=== PATIENT | female | born 1985 | race African-American/Black ===

== ENCOUNTER → 2019-03-31 | Outpatient (CLI) | payer MEDICAID ==
[2015-06-22 16:15] VITALS: BP 118/68
[~2019-03-31] MED LIST: ACET-704 PO; IBUP-1060 PO
--- NOTE | 2019-03-31 16:53 | KCIC ---
Examination: PREG MORE THAN OR EQ TO 14 WKS History: Unknown dates. Estimation of weight. Comparison/Correlation: None FINDINGS: Single living intrauterine gestation is present with cephalic lie. Posterior the located placenta is noted. Heart rate is 140 cm present. Maternal cervical length is 5.6 cm. anatomy identified includes: Bladder, spine, bilateral lateral ventricles, stomach, heart, aorta, three-vessel cord insertion, bilateral kidneys, diaphragm, cerebellum, cisterna magna, bilateral upper extremities, and bilateral lower extremities. gender: Female measurements include: Biparietal diameter: 6.46 cm corresponding to 26 weeks 1 day. Femur length of 5.08 cm corresponding to 27 weeks 2 days. Head circumference of 24.1 cm corresponding to 26 weeks 1 day. Abdominal circumference of 27.8 cm corresponding to 27 weeks 2 days. Age by 4 parameters corresponds to 26 weeks 3 days. EDC by average age is 07/04/2019. Cephalic index of 85.5. H/A ratio is 1.11. FL/BPD is 78.6. FL/ AC is 23.3. Estimated weight is 956 g +/- 141 g. Amniotic fluid index is 12.2. IMPRESSION: Single living intrauterine gestation with average ultrasound age of 26 weeks 3 days. Electronically signed by: Farhat Rice MD (03/31/2019 4:50 PM) [facility]
== END | disposition home or self-care (01) ==
LOC: KCIC US 11:51
PROVIDERS: ATTEND Obstetrics & Gynecology
DX: Z34.92 Encounter for supervision of normal pregnancy, unspecified, second trimester (principal); Z3A.26 26 weeks gestation of pregnancy
CPT/HCPCS: 76805

== ENCOUNTER 2019-06-09 10:03 | Observation (INO) | payer MEDICAID ==
[2015-06-22 16:15] VITALS: BP 118/68
--- NOTE | 2019-06-09 11:54 | RAD ---
Exam is an: Ultrasound biophysical profile HISTORY: History of gestational diabetes COMPARISON: 03/31/2019 FINDINGS: breathing movements 2 / 2 motion 2 / 2 tone 2/2 Amniotic fluid volume 2 / 2. Placenta is posterior and to the left. presentation is cephalic. Amniotic fluid index is 10.7 cm. Clinical age 36 weeks and 3 days with estimated date of delivery 07/04/2019. Ultrasound age is 36 weeks and 0 days with date of delivery by ultrasound 07/07/2019. Cephalic index 81.4. heart rate 152 bpm. Head circumference to abdominal circumference ratio 0.96. Femur length to biparietal diameter ratio 82. Femur length to head circumference 23. Femur length abdominal circumference 22. Biparietal diameter measures 8.7 cm corresponding 35 weeks and 3 days. Head circumference measures 31.2 cm corresponding 35 weeks and 0 days. Abdominal circumference measures 32.5 cm corresponding to 36 weeks and 3 days Femur length measures 7.1 cm corresponding 36 weeks and 6 days. IMPRESSION: 1. Single living intrauterine . 2. Normal biophysical profile score. Electronically signed by: Jaspal Babin MD (06/09/2019 11:50 AM) [id number]
== END 2019-06-09 11:32 | disposition home or self-care (01) ==
LOC: 3 SO LND 10:03
PROVIDERS: ADMIT Obstetrics & Gynecology; ATTEND Obstetrics & Gynecology
DX: O24.419 Gestational diabetes mellitus in pregnancy, unspecified control (principal); Z3A.36 36 weeks gestation of pregnancy; Z98.891 History of uterine scar from previous surgery
CPT/HCPCS: 76819; G0378; G0379; 59025

== ENCOUNTER 2019-06-16 09:44 | Observation (INO) | payer MEDICAID ==
[2015-06-22 16:15] VITALS: BP 118/68
--- NOTE | 2019-06-16 11:28 | RAD ---
PREG MORE THAN OR EQ TO 14 WKS History: Gestational diabetes Comparison: June 09, 2019; March 31, 2019 Findings: Multiple sonographic images from a biophysical profile/ ultrasound are submitted. There is a single viable intrauterine fetus. There was 8 of 8 scoring for the biophysical profile which assessed for breathing movements, motion, tone, amniotic fluid volume. Estimated ZAKIYA was 9.1 cm. There is cephalic presentation. Exam lasted about 18 minutes. heart rate 158 bpm. There is posterior and left placenta. Cervix is not well-visualized on this exam. Accurate evaluation of the head is limited due to head position in the pelvis. Biometry data are as follows: Biparietal diameter 8.75 cm corresponds 35 weeks 2 days Head circumference 31.74 cm corresponds with 35 weeks 5 days Abdominal circumference 33.17 cm corresponds with 37 weeks 1 day Femur length 7.37 cm corresponds with 37 weeks 5 days Estimated weight 3055 g +/- 452 g Estimated weight percentile 43% Adjusted ultrasound age 36 weeks 3 days with estimated delivery date of 07/11/2019 LMP age 37 weeks 3 days with estimated delivery date 07/04/2019 HC/AC ratio within normal limits 0.96. Impression: 1. There is 8 of 8 scoring for the biophysical profile. There are growth parameters as stated. There is cephalic presentation of the single intrauterine fetus. Cervix is not well-visualized on this exam. Electronically signed by: Jenaro Randolph MD (06/16/2019 11:25 AM) [facility] [id number]
== END 2019-06-16 12:18 | disposition home or self-care (01) ==
LOC: 3 SO LND 09:44
PROVIDERS: ADMIT Obstetrics & Gynecology; ATTEND Obstetrics & Gynecology
DX: O24.419 Gestational diabetes mellitus in pregnancy, unspecified control (principal); Z3A.37 37 weeks gestation of pregnancy
CPT/HCPCS: 76805; G0378; G0379; 59025

== ENCOUNTER 2019-06-23 10:27 | Observation (INO) | payer MEDICAID ==
[2015-06-22 16:15] VITALS: BP 118/68
[2019-06-23] MEDS ORDERED: IV RINGERS,LACTATED 1000ML 1,000 ML IV SCH (10:29)
== END 2019-06-23 11:36 | disposition home or self-care (01) ==
LOC: 3 SO LND 10:27
PROVIDERS: ADMIT Obstetrics & Gynecology; ATTEND Obstetrics & Gynecology
DX: O24.419 Gestational diabetes mellitus in pregnancy, unspecified control (principal); Z3A.38 38 weeks gestation of pregnancy
CPT/HCPCS: G0378; G0379; 59025

== ENCOUNTER 2019-06-27 05:38 | Inpatient (IN) | payer MEDICAID ==
[~2019-06-27] VITALS: Ht 160 cm; Wt 102.5 kg
[2019-06-27] MEDS ORDERED: TERBUTALINE 1 MG/ML VIAL. SQ PRN (05:45)
[2019-06-27] MEDS ORDERED: CITRIC ACID/SODIUM CITRATE 30 ML SOLUTION. PO PRN (05:45)
[2019-06-27] MEDS ORDERED: 0.9 % SODIUM CHLORIDE 10 ML DISP.SYRIN. IV PRN ×2 (05:45→08:00)
[2019-06-27] MEDS ORDERED: miSOPROStol 200 MCG TABLET PR PRN (05:45)
[2019-06-27] MEDS ORDERED: ACETAMINOPHEN 500 MG TABLET PO PRN (05:45)
[2019-06-27] MEDS ORDERED: METHYLERGONOVINE MALEATE 0.2 MG/ML VIAL. IM PRN (05:45)
[2019-06-27] MEDS ORDERED: ONDANSETRON PF 4 MG/2 ML VIAL. IV PRN (05:45)
[2019-06-27] MEDS ORDERED: fentaNYL PF VIAL 100 MCG/2 ML VIAL IV PRN ×2 (05:45)
[2019-06-27] MEDS ORDERED: BUTORPHANOL 2 MG/ML VIAL. IV PRN (05:45)
[2019-06-27] MEDS ORDERED: OXYTOCIN 30 UNIT/500 ML PREMIX 500 ML IV PRN ×3 (05:45→08:00)
[2019-06-27] MEDS ORDERED: LIDOCAINE 1% PF 30 ML VIAL. INJ PRN (05:45)
[2019-06-27] MEDS ORDERED: IBUPROFEN 400 MG TABLET. PO PRN (05:45)
[2019-06-27] MEDS ORDERED: PENICILLIN G K 5,000,000 UNIT in IV DEXTROSE 5% 100ML 100 ML IV ONE (06:00)
[2019-06-27] MEDS: IV RINGERS,LACTATED 1000ML 1,000 ML IV SCH ×3 (06:02→21:39)
[2019-06-27 06:06] LABS: BASO % 0 % (0-3); EOS % 0 % (0-3); HEMATOCRIT 35.1 % (36.0-47.0); HEMOGLOBIN 11.7 g/dL (12.0-15.5); LYMPH # 1.2 x10^3/uL (1.0-4.8); LYMPH % 8 % (24-48); MEAN CORPUSCULAR HEMOGLOBIN 27 pg (25-35); MEAN CORPUSCULAR HGB CONC 33 g/dL (31-37); MEAN CORPUSCULAR VOLUME 81 fL (79-100); MONO # 1.2 x10^3/uL (0.0-1.1); MONO % 9 % (0-9); NEUT # 11.5 x10^3/uL (1.8-7.7); NEUT % 83 % (31-73); PLATELET COUNT 201 x10^3/uL (140-400); RED BLOOD COUNT 4.31 x10^6/uL (3.50-5.40); RED CELL DISTRIBUTION WIDTH 15.2 % (11.5-14.5); WHITE BLOOD COUNT 13.9 x10^3/uL (4.0-11.0)
[2019-06-27 06:09] VITALS: BP 160/74
[2019-06-27 06:17] LABS: BILIRUBIN,URINE NEGATIVE (NEG); CLARITY,URINE CLOUDY; COLOR,URINE YELLOW; NITRITE,URINE NEGATIVE (NEG); PH,URINE 6.5; PROTEIN,URINE NEGATIVE (NEG-TRACE)
[2019-06-27 06:55] LABS: WBC,URINE TNTC /HPF (0-4)
[2019-06-27 06:56] LABS: BACTERIA,URINE MANY /HPF (0-FEW)
--- NOTE | 2019-06-27 06:56 | PDOC1 ---
OB - History Hx of Present Care: Limited Care Ultrasounds: Normal mid trimester US Obstetrical Complications: Gestational Diabetes Medical Complications: None Past Family/Social History * Past Medical, Surgical, Family and Obstetric Histories reviewed from chart. Rubella: Immune RPR/VDRL: Negative GBS Status: Positive HBsAG: Negative OB - Chief Complaint & HPI Date of Admission: Date of Admission: Jun 27, 2019 at 05:38 Chief Complaint/History : 11 Para: 7 EGA: 39 Reason for admission: active labor Admission Nurse Assessment Rev: Yes OB - Admission Exam Physical Exam Vitals: VS - Last 72 Hours, by Label Date Time Temp Pulse Resp B/P (MAP) Pulse Ox O2 Delivery O2 Flow Rate FiO2 06/27/19 06:09 98.6 116 18 160/74 (102) Room Air 98.6 HEENT: Normal Heart: Regular Rate Lungs: Clear, Equal Abdomen: Gravid, Non tender, Soft Extremities: Edema Reflexes: Normal Cervical Dilatation: 7cm Effacement: 75% Station: -2 Membranes: Intact Heart Rate: Normal Accelerations: Accelerations Present Decelerations: No decelerations Mcfp Variability: Moderate Contractions on Admission: < 5 Minutes Apart Intensity: Moderate Text A: 39 wks IUP Previous c/s Previous x 4 GBS positive GDM A1 P: Admit active labor. Plan for . CAROL MONTEZ Jr, MD Jun 27, 2019 06:56
[2019-06-27] MEDS ORDERED: OXYTOCIN PREMIX 30 UNIT/500 ML NS BAG. IV ONE (07:00)
--- NOTE | 2019-06-27 07:53 | PDOC ---
VAGINAL DELIVERY DATE DATE: 06/27/19 TIME: 07:52 : Other (11) Para: Other (8) EGA: 39 VAGINAL DELIVERY: VTX VACCUM ASSISTED: No PLACENTA: Spontaneous 8/9 SEX: Female WEIGHT Weight [pending ] Nuchal Cord: No Amniotic Fluid: Clear PAIN: Natural EPISIOTOMY: No EXTENSION: No EBL 300 ml COMPLICATIONS none CONDITION pt. stable Signs of Intrauterine Infectio: None Shoulder Dystocia: No CAROL MONTEZ Jr, MD Jun 27, 2019 07:53
[2019-06-27] MEDS ORDERED: diphenhydrAMINE HCL 25 MG CAPSULE PO PRN (08:00)
[2019-06-27] MEDS ORDERED: ZOLPIDEM 5 MG TABLET. PO PRN (08:00)
[2019-06-27] MEDS ORDERED: MAG HYDROX/ALUMINUM HYD/SIMETH 30 ML ORAL.SUSP PO PRN (08:00)
[2019-06-27] MEDS ORDERED: ACETAMINOPHEN 325 MG TABLET. PO PRN (08:00)
[2019-06-27] MEDS ORDERED: MAGNESIUM HYDROXIDE 2,400 MG/30 ML ORAL.SUSP. PO PRN (08:00)
[2019-06-27] MEDS ORDERED: PHENYLEPH/MINERAL OIL/PETROLAT RECTAL OINTMENT TUBE. RC PRN (08:00)
[2019-06-27] MEDS ORDERED: HYDROCORTISONE 1% TOPICAL OINTMENT 30GM TUBE. TP PRN (08:00)
[2019-06-27] MEDS ORDERED: oxyCODONE/APAP 5/325 1 TAB TABLET PO PRN (08:00)
[2019-06-27] MEDS ORDERED: SIMETHICONE 80 MG TAB.CHEW PO PRN (08:00)
[2019-06-27] MEDS ORDERED: MMR per PROTOCOL. MC PRN (08:00)
[2019-06-27] MEDS ORDERED: BENZOCAINE 20% TOPICAL AEROSOL SPRAY 57GM CAN. TP PRN (08:00)
[2019-06-27] MEDS ORDERED: PENICILLIN G K 2,500,000 UNIT in IV DEXTROSE 5% 50 ML IV SCH (10:00)
[2019-06-27 20:05] VITALS: BP 109/62
[2019-06-27] MEDS: DOCUSATE SODIUM 100 MG CAPSULE. PO PRN (21:10)
[2019-06-27] MEDS: IBUPROFEN 400 MG TABLET. PO PRN (21:11)
[2019-06-28] VITALS: BP 110/71
[2019-06-28 04:30] VITALS: BP 92/55
[2019-06-28 04:45] LABS: BASO % 0 % (0-3); EOS # 0.1 x10^3/uL (0.0-0.7); EOS % 0 % (0-3); HEMATOCRIT 32.9 % (36.0-47.0); HEMOGLOBIN 10.9 g/dL (12.0-15.5); LYMPH # 2.8 x10^3/uL (1.0-4.8); LYMPH % 21 % (24-48); MEAN CORPUSCULAR HEMOGLOBIN 27 pg (25-35); MEAN CORPUSCULAR HGB CONC 33 g/dL (31-37); MEAN CORPUSCULAR VOLUME 82 fL (79-100); MONO # 1.3 x10^3/uL (0.0-1.1); MONO % 10 % (0-9); NEUT # 8.8 x10^3/uL (1.8-7.7); NEUT % 68 % (31-73); PLATELET COUNT 209 x10^3/uL (140-400); RED BLOOD COUNT 4.03 x10^6/uL (3.50-5.40); RED CELL DISTRIBUTION WIDTH 15.2 % (11.5-14.5)
[2019-06-28] MEDS ORDERED: FERROUS SULFATE 325 MG TABLET. PO SCH (08:00)
[2019-06-28] MEDS ORDERED: FLU VAX QS 2019-20 (36MOS+)/PF 0.5 ML SYRINGE. VAX IM ONE (09:30)
[2019-06-28] MEDS ORDERED: DIPHTH,PERTUSS(ACELL),TET TOX 0.5 ML DISP.SYRIN. VAX IM ONE (09:45)
[2019-06-28 11:20] VITALS: BP 99/72
[2019-06-28 16:45] VITALS: BP 102/68
--- NOTE | 2019-06-28 18:28 | PDOC ---
OB Progress Note Date of Service 06/28/19 Time of Evaluation 1825 Notes Pt. feeling well. No complaints. Lab Laboratory Tests Test 06/27/19 05:50 06/27/19 06:00 06/28/19 04:25 Urine Collection Type Unknown Urine Color Yellow Urine Clarity Cloudy Urine pH 6.5 Urine Specific [place] 1.010 Urine Protein Negative mg/dL (NEG-TRACE) Urine Glucose (UA) Negative mg/dL (NEG) Urine Ketones (Stick) >=80 mg/dL (NEG) Urine Blood Large (NEG) Urine Nitrite Negative (NEG) Urine Bilirubin Negative (NEG) Urine Urobilinogen Dipstick 1.0 mg/dL (0.2 mg/dL) Urine Leukocyte Esterase Large (NEG) Urine RBC 6-10 /HPF (0-2) Urine WBC Tntc /HPF (0-4) Urine Bacteria Many /HPF (0-FEW) White Blood Count 13.9 x10^3/uL (4.0-11.0) 13.0 x10^3/uL (4.0-11.0) Red Blood Count 4.31 x10^6/uL (3.50-5.40) 4.03 x10^6/uL (3.50-5.40) Hemoglobin 11.7 g/dL (12.0-15.5) 10.9 g/dL (12.0-15.5) Hematocrit 35.1 % (36.0-47.0) 32.9 % (36.0-47.0) Mean Corpuscular Volume 81 fL (79-100) 82 fL (79-100) Mean Corpuscular Hemoglobin 27 pg (25-35) 27 pg (25-35) Mean Corpuscular Hemoglobin Concent 33 g/dL (31-37) 33 g/dL (31-37) Red Cell Distribution Width 15.2 % (11.5-14.5) 15.2 % (11.5-14.5) Platelet Count 201 x10^3/uL (140-400) 209 x10^3/uL (140-400) Neutrophils (%) (Auto) 83 % (31-73) 68 % (31-73) Lymphocytes (%) (Auto) 8 % (24-48) 21 % (24-48) Monocytes (%) (Auto) 9 % (0-9) 10 % (0-9) Eosinophils (%) (Auto) 0 % (0-3) 0 % (0-3) Basophils (%) (Auto) 0 % (0-3) 0 % (0-3) Neutrophils # (Auto) 11.5 x10^3/uL (1.8-7.7) 8.8 x10^3/uL (1.8-7.7) Lymphocytes # (Auto) 1.2 x10^3/uL (1.0-4.8) 2.8 x10^3/uL (1.0-4.8) Monocytes # (Auto) 1.2 x10^3/uL (0.0-1.1) 1.3 x10^3/uL (0.0-1.1) Eosinophils # (Auto) 0.0 x10^3/uL (0.0-0.7) 0.1 x10^3/uL (0.0-0.7) Basophils # (Auto) 0.0 x10^3/uL (0.0-0.2) 0.0 x10^3/uL (0.0-0.2) Treponema pallidum Antibody Nonreactive (Nonreactive) Laboratory Tests Test 06/28/19 04:25 White Blood Count 13.0 x10^3/uL (4.0-11.0) Red Blood Count 4.03 x10^6/uL (3.50-5.40) Hemoglobin 10.9 g/dL (12.0-15.5) Hematocrit 32.9 % (36.0-47.0) Mean Corpuscular Volume 82 fL (79-100) Mean Corpuscular Hemoglobin 27 pg (25-35) Mean Corpuscular Hemoglobin Concent 33 g/dL (31-37) Red Cell Distribution Width 15.2 % (11.5-14.5) Platelet Count 209 x10^3/uL (140-400) Neutrophils (%) (Auto) 68 % (31-73) Lymphocytes (%) (Auto) 21 % (24-48) Monocytes (%) (Auto) 10 % (0-9) Eosinophils (%) (Auto) 0 % (0-3) Basophils (%) (Auto) 0 % (0-3) Neutrophils # (Auto) 8.8 x10^3/uL (1.8-7.7) Lymphocytes # (Auto) 2.8 x10^3/uL (1.0-4.8) Monocytes # (Auto) 1.3 x10^3/uL (0.0-1.1) Eosinophils # (Auto) 0.1 x10^3/uL (0.0-0.7) Basophils # (Auto) 0.0 x10^3/uL (0.0-0.2) Medications Current Medications Sodium Chloride (Normal Saline Flush) 3 ml QSHIFT PRN IV AFTER MEDS AND BLOOD DRAWS Last administered on 06/28/19at 00:22; Start 06/27/19 at 05:45; Stop 06/28/19 at 13:10; Status DC Ringer's Solution 1,000 ml @ 125 mls/hr Q8H IV Last administered on 06/27/19at 06:02; Start 06/27/19 at 05:39 Butorphanol Tartrate (Stadol) 2 mg PRN Q1HR PRN IV Severe labor pain; Start 06/27/19 at 05:45; Stop 06/27/19 at 18:01; Status DC Fentanyl Citrate (Fentanyl 2ml Vial) 50 mcg PRN Q30MIN PRN IV Mild to moderate pain; Start 06/27/19 at 05:45 Fentanyl Citrate (Fentanyl 2ml Vial) 100 mcg PRN Q30MIN PRN IV Severe pain; Start 06/27/19 at 05:45 Acetaminophen (Tylenol) 1,000 mg PRN Q6HRS PRN PO MILD PAIN / TEMP; Start 06/27/19 at 05:45; Stop 06/28/19 at 13:10; Status DC Ondansetron HCl (Zofran) 4 mg PRN Q4HRS PRN IV NAUSEA/VOMITING 1ST CHOICE; Start 06/27/19 at 05:45 Citric Acid/ Sodium Citrate (Bicitra) 30 ml 1X PRN PRN PO DYSPEPSIA; Start 06/27/19 at 05:45; Stop 06/28/19 at 05:44; Status DC Terbutaline Sulfate (Brethine) 0.25 mg 1X PRN PRN SQ SEE COMMENTS; Start 06/27/19 at 05:45; Stop 06/28/19 at 05:44; Status DC Lidocaine HCl (Xylocaine 1% Pf 30ml Vial) 30 ml 1X PRN PRN INJ SEE COMMENTS; Start 06/27/19 at 05:45; Stop 06/29/19 at 05:44 Oxytocin/Sodium Chloride 500 ml @ 0 mls/hr CONT PRN IV SEE I/O RECORD; Start 06/27/19 at 05:45 Oxytocin/Sodium Chloride 500 ml @ 0 mls/hr CONT PRN PRN IV Post delivery ble eding; Start 06/27/19 at 05:45 Ibuprofen (Motrin) 800 mg PRN Q6HRS PRN PO MODERATE PAIN 4-6 Last administered on 06/27/19at 09:16; Start 06/27/19 at 05:45; Stop 06/27/19 at 18:01; Status DC Penicillin G Potassium [id number] unit/Dextrose 100 ml @ 100 mls/hr 1X ONCE IV Last administered on 06/27/19at 06:02; Start 06/27/19 at 06:00; Stop 06/27/19 at 06:59; Status DC Penicillin G Potassium [id number] unit/Dextrose 50 ml @ 100 mls/hr Q4H IV ; Start 06/27/19 at 10:00; Stop 06/27/19 at 18:01; Status DC Methylergonovine Maleate (Methergine) 0.2 mg 1X PRN PRN IM PER PROTOCOL; Start 06/27/19 at 05:45 Misoprostol (Cytotec 200mcg Tab) 800 mcg 1X PRN PRN HI PER PROTOCOL; Start 06/27/19 at 05:45 Sodium Chloride (Normal Saline Flush) 10 ml QSHIFT PRN IV AFTER MEDS AND BLOOD DRAWS; Start 06/27/19 at 08:00 Oxytocin/Sodium Chloride 500 ml @ 62.5 mls/hr CONT PRN IV SEE I/O RECORD; St art 06/27/19 at 08:00; Stop 06/27/19 at 15:59; Status DC Acetaminophen (Tylenol) 650 mg PRN Q6HRS PRN PO MILD PAIN / TEMP; Start 06/27/19 at 08:00 Ibuprofen (Motrin) 800 mg PRN Q8HRS PRN PO INFLAMMATION/PAIN PREVENTION Last administered on 06/27/19at 21:11; Start 06/27/19 at 08:00 Docusate Sodium (Colace) 100 mg PRN BID PRN PO HARD STOOLS Last administered on 06/27/19at 21:10; Start 06/27/19 at 08:00 Magnesium Hydroxide (Milk Of Magnesia) 2,400 mg PRN DAILY PRN PO CONSTIPATION; Start 06/27/19 at 08:00 Al Hydroxide/Mg Hydroxide (Mylanta Plus Xs) 30 ml PRN Q4HRS PRN PO HEARTBURN / GAS; Start 06/27/19 at 08:00 Simethicone (Gas-X) 80 mg PRN AFTMEALHC PRN PO GAS / BLOATING; Start 06/27/19 at 08:00 Diphenhydramine HCl (Benadryl) 25 mg PRN Q6HRS PRN PO ITCHING; Start 06/27/19 at 08:00 Benzocaine (Americaine) 1 spray PRN QID PRN TP TOPICAL PAIN; Start 06/27/19 at 08:00 Phenyleph/Shark Oil/Min Oil/Petrol (Preparation H) 1 renu PRN QID PRN RC RECTAL PAIN; Start 06/27/19 at 08:00 Hydrocortisone (Cortaid) 1 renu PRN QID PRN TP PERINEAL PAIN; Start 06/27/19 at 08:00 Ferrous Sulfate (Feosol) 325 mg BIDWMEALS PO ; Start 06/28/19 at 08:00 Zolpidem Tartrate (Ambien) 5 mg PRN QHS PRN PO INSOMNIA, MAY REPEAT X1; Start 06/27/19 at 08:00 Info (Do NOT chart on this placeholder) 1 ea 1X PRN PRN MC SEE COMMENTS; Start 06/27/19 at 08:00 Info (Do NOT chart on this placeholder) 1 ea 1X PRN PRN MC SEE COMMENTS; Start 06/27/19 at 08:00 Oxycodone/ Acetaminophen (Percocet 5/325) 2 tab PRN Q4HRS PRN PO MODERATE PAIN, SEVERE PAIN; Start 06/27/19 at 08:00 Oxytocin/Sodium Chloride (Oxytocin Premix Infusion) 60 unit STK-MED ONCE IV ; Start 06/27/19 at 07:00; Stop 06/27/19 at 13:12; Status DC Influenza Virus Vaccine Quadrival (Afluria Quad 2019-20 (3yr Up) Syringe) 0.5 ml ONCE ONCE VAX IM ; Start 06/28/19 at 09:30; Stop 06/28/19 at 09:32; Status DC Diphtheria/ Tetanus/Acell Pertussis (Boostrix) 0.5 ml ONCE ONCE VAX IM ; Start 06/28/19 at 09:45; Stop 06/28/19 at 09:46; Status DC Active Scripts Active Tylenol With Codeine #3 Tablet (Acetaminophen/Codeine Phosphate) 1 Each Tablet 1 Each PO Q4H PRN Ibuprofen 800 Mg Tablet 800 Mg PO Q6H PRN Exam Abd: soft, non tender, fundus firm Assessment PPD#1 s/p Plan of Care: Continue current Tx, Mgmt CAROL MONTEZ Jr, MD Jun 28, 2019 18:28
[2019-06-28 20:05] VITALS: BP 132/78
[2019-06-29] MEDS: IBUPROFEN 400 MG TABLET. PO PRN ×2 (01:37→10:55)
[2019-06-29 04:41] VITALS: BP 114/73
[2019-06-29] MEDS: DOCUSATE SODIUM 100 MG CAPSULE. PO PRN (10:55)
[2019-06-29 11:01] VITALS: BP 112/75
--- NOTE | 2019-06-29 12:48 | PDOC3 ---
OB DISCHARGE SUMMARY DATE OF ADMISSION: 06/27/19 DATE OF DISCHARGE: 06/29/19 REASON FOR ADMISSION: Onset of labor, TOLAC INTRAPARTUM PROCEDURES: Others () DISCHARGE DIAGNOSIS: Term Delivered DISCHARGE INFORMATION: Activity (ad guy), Diet (regular), Instructions (pelvic rest x 6 wks) HOSPITAL COURSE Term gestation delivered vaginally without complications. CAROL MONTEZ Jr, MD Jun 29, 2019 12:48
[2019-06-29] MEDS ORDERED: IBUP-1060 PO (12:50)
--- NOTE | 2019-06-29 12:50 | DISCH ---
DISCHARGE INSTRUCTIONS Condition on Discharge Condition on Discharge: Stable Activity After Discharge Activity Instructions for Disc: Avoid exertion Bathing Instructions: No Tub Bath until see Lifting Instructions after Dis: No heavy lifting, No pulling or pushing, Do not lift >10 pounds Exercise Instruction after Dis: Progress as tolerated Driving Instructions after Dis: Do not drive today Weight Bearing Status after Di: Full weight bearing Sexual Activity Restrictions: Pelvic Rest for 6 weeks Diet after Discharge Diet after Discharge: Regular Diet Texture: Regular Swallowing Supervision: None needed Wound Incision Care Wound/Incision Care: No wound care needed Checks after Discharge Checks after discharge: Check your Temp as needed Contacting the DRDivina after DC Call your doctor for: If your condition worsens Follow-Up Follow Up With: Dr. Frank in 6 weeks Treatment/Equipment after DC Adaptive Equipment Issued: None CAROL FRANK Jr, MD Jun 29, 2019 12:50
--- NOTE | 2019-06-29 14:08 | NUR ---
Discharge Note: SEMAJ MURRY [address] Discharge instructions and discharge home medications reviewed with Patient and a copy given. All questions have been answered and understanding verbalized. Patient discharged to home with self-care via ambulation to private vehicle. Pt. daughter and spouse at bedside at time of discharge.
== END 2019-06-29 13:15 | disposition home or self-care (01) | DRG 807 ==
LOC: 3 SO LND 05:38 → OBSVTOIN 05:43 → 3 NORTH 10:20
PROVIDERS: ADMIT Obstetrics & Gynecology; ATTEND Obstetrics & Gynecology
PROC: 10E0XZZ Delivery of Products of Conception, External Approach (ICD-10-PCS; principal; 2019-06-27)
DX: O24.420 Gestational diabetes mellitus in childbirth, diet controlled (principal); Z37.0 Single live birth; O99.824 Streptococcus B carrier state complicating childbirth; O34.219 Maternal care for unspecified type scar from previous cesarean delivery; Z3A.39 39 weeks gestation of pregnancy
CPT/HCPCS: 36415; 81001; 85025; 86592; 86850; 86900; 86901; 86920; 87086; 90471; 90686; 90715; G0379; J2540; J2590; J7120; G0378

== ENCOUNTER 2020-08-14 13:06 | Emergency (ER) | payer MEDICAID ==
[~2020-08-14] VITALS: Ht 165.1 cm; Wt 100.0 kg
[2020-08-14 14:37] LABS: BACTERIA,URINE 0 /HPF (0-FEW); BILIRUBIN,URINE NEGATIVE (NEG); CLARITY,URINE CLEAR; COLOR,URINE YELLOW; NITRITE,URINE NEGATIVE (NEG); PROTEIN,URINE NEGATIVE (NEG-TRACE); RBC,URINE 0 /HPF (0-2); UROBILINOGEN,URINE 0.2 mg/dL (0.2 mg/dL); WBC,URINE 0 /HPF (0-4)
--- NOTE | 2020-08-14 15:40 | RAD ---
EXAM: Ultrasound OB Greater than 14 weeks INDICATION: Reason: vag bleeding in / Spl. Instructions: / History: TECHNIQUE: Real-time obstetrical ultrasound was performed with permanent freeze-frame documentation. COMPARISON: None. FINDINGS: POSITION: Cephalic HEART RATE: 157 bpm ZAKIYA: Subjectively normal. PLACENTA: Posterior previa CERVICAL LENGTH: 5.8 cm MATERNAL UTERUS: Unremarkable. MATERNAL ADNEXA: Unremarkable. AGE/DATES: Gestational Age by LMP: 13 weeks 6 days Gestation Age by US: 14 weeks 2 days EDC by LMP: February 13, 2021 EDC by US: February 10, 2021 WEIGHT: Not estimated PERCENTILE WEIGHT: Not estimated BIOMETRIC PARAMETERS: BPD: 2.5 cm corresponding with 14 weeks 2 days HC: 9.1 cm corresponding with 14 weeks 1 day AC: 8.3 cm corresponding with 14 weeks 4 days FL: 1.4 cm corresponding with 14 weeks 1 day IMPRESSION: Single viable intrauterine fetus in cephalic position with posterior placenta previa. Estimated gesta tional age of 14 weeks 2 days and EDC of February 10, 2021. Electronically signed by: Davion Koenig MD (08/14/2020 3:37 PM) [id number]
[2020-08-14 15:43] LABS: BASO % 0 % (0-3); EOS % 1 % (0-3); HEMATOCRIT 40.9 % (36.0-47.0); HEMOGLOBIN 14.1 g/dL (12.0-15.5); LYMPH # 2.1 x10^3/uL (1.0-4.8); LYMPH % 28 % (24-48); MEAN CORPUSCULAR HEMOGLOBIN 30 pg (25-35); MEAN CORPUSCULAR HGB CONC 35 g/dL (31-37); MEAN CORPUSCULAR VOLUME 86 fL (79-100); MONO # 0.5 x10^3/uL (0.0-1.1); MONO % 7 % (0-9); NEUT # 4.9 x10^3/uL (1.8-7.7); NEUT % 64 % (31-73); PLATELET COUNT 300 x10^3/uL (140-400); RED BLOOD COUNT 4.74 x10^6/uL (3.50-5.40); RED CELL DISTRIBUTION WIDTH 13.6 % (11.5-14.5); WHITE BLOOD COUNT 7.7 x10^3/uL (4.0-11.0)
[2020-08-14 15:50] LABS: CALCIUM 8.8 mg/dL (8.5-10.1); CREATININE 0.5 mg/dL (0.6-1.0); GFR 168.9; POTASSIUM 3.6 mmol/L (3.5-5.1)
[2020-08-14 15:56] LABS: ALBUMIN 3.2 g/dL (3.4-5.0); ALBUMIN/GLOBULIN RATIO 0.8 (1.0-1.7); TOTAL BILIRUBIN 0.3 mg/dL (0.2-1.0); TOTAL PROTEIN 7.2 g/dL (6.4-8.2)
[2020-08-14 16:26] VITALS: BP 111/69
--- NOTE | 2020-08-14 16:27 | PHYS DOC ---
Past Medical History Past Medical History: No Pertinent History Past Surgical History: Smoking Status: Never Smoker Alcohol Use: None General Adult EDM: Chief Complaint: VAGINAL BLEEDING HPI: HPI: Patient is a 35 year old female 12 para 8 presents into the ED today complaining of vaginal bleeding that began on August 05, 2020. Patient states the bleeding is very light and intermittent. She states she has not had any bleeding today. Denies any abdominal pain, nausea vomiting. She states she follows up with an CLAIMS CONSULTANT Review of Systems: Review of Systems: Constitutional: Denies fever or chills. [] Eyes: Denies change in visual acuity. [] HENT: Denies nasal congestion or sore throat. [] Respiratory: Denies cough or shortness of breath. [] Cardiovascular: Denies chest pain or edema. [] GI: Reports vaginal bleeding. Denies abdominal pain, nausea, vomiting, bloody stools or diarrhea. [] : Denies dysuria. [] Musculoskeletal: Denies back pain or joint pain. [] Integument: Denies rash. [] Neurologic: Denies headache, focal weakness or sensory changes. [] Psychiatric: Denies depression or anxiety. [] Heart Score: Risk Factors: Risk Factors: DM, Current or recent (<one month) smoker, HTN, HLP, family history of CAD, obesity. Risk Scores: Score 0 - 3: 2.5% MACE over next 6 weeks - Discharge Home Score 4 - 6: 20.3% MACE over next 6 weeks - Admit for Clinical Observation Score 7 - 10: 72.7% MACE over next 6 weeks - Early Invasive Strategies Allergies: Allergies: Allergies Coded Allergies Type Severity Reaction Last Updated Verified No Known Drug Allergies 06/20/15 No Physical Exam: PE: Constitutional: Well developed, well nourished, no acute distress, non-toxic appearance. [] HENT: Normocephalic, atraumatic, bilateral external ears normal, oropharynx moist, no oral exudates, nose normal. [] Eyes: PERRLA, EOMI, conjunctiva normal, no discharge. [] Neck: Normal range of motion, no tenderness, supple, no stridor. [] Cardiovascular:Heart rate regular rhythm, no murmur [] Lungs & Thorax: Bilateral breath sounds clear to auscultation [] Abdomen: Bowel sounds normal, soft, no tenderness, no masses, no pulsatile masses. [] Pelvic exam External pelvic appears normal, cervix is visualized, closed, no CMT, no adnexal tenderness, no bleeding noted Skin: Warm, dry, no erythema, no rash. [] Back: No tenderness, no CVA tenderness. [] Extremities: No tenderness, no cyanosis, no clubbing, ROM intact, no edema. [] Neurologic: Alert and oriented X 3, normal motor function, normal sensory f unction, no focal deficits noted. [] Psychologic: Affect normal, judgement normal, mood normal. [] Current Patient Data: Labs: Laboratory Tests Test 08/14/20 13:45 08/14/20 13:52 08/14/20 15:30 Urine Collection Type Unknown Urine Color Yellow Urine Clarity Clear Urine pH 7.0 (<5.0-8.0) Urine Specific [place] 1.015 (1.000-1.030) Urine Protein Negative mg/dL (NEG-TRACE) Urine Glucose (UA) Negative mg/dL (NEG) Urine Ketones (Stick) Negative mg/dL (NEG) Urine Blood Negative (NEG) Urine Nitrite Negative (NEG) Urine Bilirubin Negative (NEG) Urine Urobilinogen Dipstick 0.2 mg/dL (0.2 mg/dL) Urine Leukocyte Esterase Negative (NEG) Urine RBC 0 /HPF (0-2) Urine WBC 0 /HPF (0-4) Urine Squamous Epithelial Cells Mod /LPF Urine Bacteria 0 /HPF (0-FEW) Urine Mucus Slight /LPF POC Urine HCG, Qualitative Hcg positive (Negative) White Blood Count 7.7 x10^3/uL (4.0-11.0) Red Blood Count 4.74 x10^6/uL (3.50-5.40) Hemoglobin 14.1 g/dL (12.0-15.5) Hematocrit 40.9 % (36.0-47.0) Mean Corpuscular Volume 86 fL (79-100) Mean Corpuscular Hemoglobin 30 pg (25-35) Mean Corpuscular Hemoglobin Concent 35 g/dL (31-37) Red Cell Distribution Width 13.6 % (11.5-14.5) Platelet Count 300 x10^3/uL (140-400) Neutrophils (%) (Auto) 64 % (31-73) Lymphocytes (%) (Auto) 28 % (24-48) Monocytes (%) (Auto) 7 % (0-9) Eosinophils (%) (Auto) 1 % (0-3) Basophils (%) (Auto) 0 % (0-3) Neutrophils # (Auto) 4.9 x10^3/uL (1.8-7.7) Lymphocytes # (Auto) 2.1 x10^3/uL (1.0-4.8) Monocytes # (Auto) 0.5 x10^3/uL (0.0-1.1) Eosinophils # (Auto) 0.0 x10^3/uL (0.0-0.7) Basophils # (Auto) 0.0 x10^3/uL (0.0-0.2) Maternal Serum HCG Beta Subunit 49642 mIU/mL (0-5) H Sodium Level 138 mmol/L (136-145) Potassium Level 3.6 mmol/L (3.5-5.1) Chloride Level 103 mmol/L (98-107) Carbon Dioxide Level 24 mmol/L (21-32) Anion Gap 11 (6-14) Blood Urea Nitrogen 7 mg/dL (7-20) Creatinine 0.5 mg/dL (0.6-1.0) L Estimated GFR (Cockcroft-Gault) 168.9 BUN/Creatinine Ratio 14 (6-20) Glucose Level 88 mg/dL (70-99) Calcium Level 8.8 mg/dL (8.5-10.1) Total Bilirubin 0.3 mg/dL (0.2-1.0) Aspartate Amino Transferase (AST) 14 U/L (15-37) L Alanine Aminotransferase (ALT) 29 U/L (14-59) Alkaline Phosphatase 44 U/L (46-116) L Total Protein 7.2 g/dL (6.4-8.2) Albumin 3.2 g/dL (3.4-5.0) L Albumin/Globulin Ratio 0.8 (1.0-1.7) L Laboratory Tests 08/14/20 15:30 Laboratory Tests 08/14/20 15:30 Microbiology 08/14/20 Wet Prep - Final, Complete Vital Signs: Vital Signs Date Time Temp Pulse Resp B/P (MAP) Pulse Ox O2 Delivery O2 Flow Rate FiO2 08/14/20 13:45 98.4 85 17 139/77 (97) 97 Room Air 98.4 EKG: EKG: [] Radiology/Procedures: Radiology/Procedures: []PROCEDURE: PREG MORE THAN OR EQ TO 14 WKS EXAM: Ultrasound OB Greater than 14 weeks INDICATION: Reason: vag bleeding in / Spl. Instructions: / History: TECHNIQUE: Real-time obstetrical ultrasound was performed with permanent freeze- frame documentation. COMPARISON: None. FINDINGS: POSITION: Cephalic HEART RATE: 157 bpm ZAKIYA: Subjectively normal. PLACENTA: Posterior previa CERVICAL LENGTH: 5.8 cm MATERNAL UTERUS: Unremarkable. MATERNAL ADNEXA: Unremarkable. AGE/DATES: Gestational Age by LMP: 13 weeks 6 days Gestation Age by US: 14 weeks 2 days EDC by LMP: February 13, 2021 EDC by US: February 10, 2021 WEIGHT: Not estimated PERCENTILE WEIGHT: Not estimated BIOMETRIC PARAMETERS: BPD: 2.5 cm corresponding with 14 weeks 2 days HC: 9.1 cm corresponding with 14 weeks 1 day AC: 8.3 cm corresponding with 14 weeks 4 days FL: 1.4 cm corresponding with 14 weeks 1 day IMPRESSION: Single viable intrauterine fetus in cephalic position with posterior placenta previa. Estimated gestational age of 14 weeks 2 days and EDC of February 10, 2021. Electronically signed by: Jennifer Koenig MD (08/14/2020 3:37 PM) [id number] DICTATED and SIGNED BY: JENNIFER KOENIG MD DATE: 08/14/20 [id number] 0 Course & Med Decision Making: Course & Med Decision Making Pertinent Labs and Imaging studies reviewed. (See chart for details) This is a 35-year-old female patient 12 para 8 presenting today complaining of vaginal bleeding in , symptoms began on August 05, 2020. Currently not bleeding. CBC CMP with no acute findings. UA negative for infection, wet prep negative. OB ultrasound IUP 14 weeks 2 days heartbeat 157. Discharge to home with bed rest information. F/u with OB as soon as she can. Blood group O+ [facility] Disclaimer: Ivan Disclaimer: This electronic medical record was generated, in whole or in part, using a voice recognition dictation system. Departure Departure Impression: Primary Impression: Vaginal bleeding during Disposition: 01 DC HOME SELF CARE/HOMELESS Condition: STABLE Referrals: UNKNOWN PCP NAME (PCP) CAROL MONTEZ Jr, MD follow up as sono as you can Patient Instructions: Vaginal Bleeding During , Second Trimester Additional Instructions: You were seen for vaginal bleeding and , you are currently 14 weeks 2 days . Maintain bedrest until seen by the CLAIMS CONSULTANT, do not do any strenuous activities, no sex. Follow-up with your CLAIMS CONSULTANT as soon as you can TALIA CHOI APRN Aug 14, 2020 16:27
[2020-08-15 20:19] LABS: GC PROBE Negative (Negative)
== END 2020-08-14 16:50 | disposition home or self-care (01) ==
LOC: ER 13:06
DX: O46.91 Antepartum hemorrhage, unspecified, first trimester (principal); Z98.890 Other specified postprocedural states; Z3A.13 13 weeks gestation of pregnancy
CPT/HCPCS: 76805; 80053; 81001; 81025; 84702; 85025; 87491; 87591; 99285; Q0111

== ENCOUNTER → 2020-10-07 | Outpatient (CLI) | payer MEDICAID ==
--- NOTE | 2020-10-07 15:45 | RAD ---
EXAM: OB ULTRASOUND, > 14 WEEKS HISTORY: Uterine size and dates discrepancy. COMPARISON: 08/14/2020 TECHNIQUE: Multiple grayscale images, color Doppler, and M-mode images of the uterus are obtained. FINDINGS: There is a single intrauterine gestation in breech presentation. The placenta is posterior in locatio n. There is placenta previa. The placental margin extends to the internal cervical os. The amount of amniotic fluid appears appropriate. Amniotic fluid index is 11 cm. Cervical length is 6.4 cm. Biometrical data: BPD = 5.27 cm for 22 weeks 0 days. HC = 19.84 cm for 22 weeks 0 days. AC = 16.95 cm for 22 weeks 0 days. FL = 0.45 cm for 23 weeks 1 days. HC/AC ratio = 1.17. Overall, the estimated sonographic gestational age is 22 weeks and 2 days for an estimated date of de livery of 02/08/2021. The estimated date of delivery provided by the last menstrual period is . Estimated weight is 501 grams. A 4 chamber heart is identified with positive cardiac activity. The estimated heart rate is 149 beats per minute. Bilateral upper and lower extremities are identified. There is a three-vessel cord with cord insertion visualized. stomach and urinary bladder are identified. Both kidneys are seen. The spine and brain are unremarkable. facial profile is not well seen due to presen tation. No obvious anatomic abnormalities are identified. The maternal ovaries are not identified in the adnexa due to overlying bowel gas. IMPRESSION: 1. Single intrauterine fetus in breech presentation with a normal heart rate and gestational age base d on ultrasound measurements of 20 weeks and 2 days. The estimated gestational age based on LMP is 21 weeks and 4 days. 2. Placenta previa. Sonographic follow-up is recommended to assess for possible resolution. 3. Suboptimal reduction of the facial profile due to presentation. The remainder the feta l survey is unremarkable. Electronically signed by: Queenie Patrick MD (10/07/2020 3:43 PM) [id number]
== END ==
LOC: US 14:18
PROVIDERS: ATTEND Obstetrics & Gynecology
DX: O26.842 Uterine size-date discrepancy, second trimester (principal); Z3A.20 20 weeks gestation of pregnancy
CPT/HCPCS: 76805

== ENCOUNTER → 2021-11-06 | Outpatient (CLI) | payer MEDICAID ==
[~2021-11-06] MED LIST changes: +CONTRAST GIVEN. MC PRN; +IOHEXOL 240 MG/ML 50ML VIAL. PO ONE; +IOHEXOL 300 MG/ML 100ML VIAL. IV ONE
--- NOTE | 2021-11-06 15:08 | RAD ---
EXAMINATION: CT ABDOMEN WITHOUT AND WITH IV CONTRAST CLINICAL HISTORY: Epigastric pain. TECHNIQUE: CT of the abdomen performed using standard technique, scanning from just above the dome of the diaphragm to the iliac crests with and without intravenous contrast. CT Dose Reduction Employed: One or more of the following individualized dose reduction techniques wer e utilized for this examination: 1. Automated exposure control 2. Adjustment of the mA and/or kV ac cording to patient size 3. Use of iterative reconstruction technique. COMPARISON: None FINDINGS: Minimal bibasilar subsegmental atelectasis. Two hypodense hypoenhancing lesions in the liver measuring 1.7 cm in the lateral right hepatic lobe a nd 1.1 cm in the medial left hepatic lobe, incompletely evaluated. Gallbladder, pancreas, spleen, adr enal glands, and kidneys unremarkable. Prominent appendix measuring up to 8 mm in diameter with enteric contrast in the proximal appendix an d no definite wall thickening or significant periappendiceal inflammation. Findings are nonspecific b ut the appendix is most likely within normal limits for the patient. No bowel dilation or definite wa ll thickening. No hiatal hernia. No abdominal aortic or iliac artery aneurysm. Small multilobular fat-containing midline ventral hernia in the lower abdomen. Nonspecific 1.3 cm scl erotic density in the T11 vertebral body. IMPRESSION: No evidence of acute abdominal abnormality. 2 nonspecific hepatic lesions as described, incompletely evaluated. Liver ultrasound and/or liver pro tocol abdominal CT/MRI with intravenous contrast could be obtained for further evaluation as indicate d. Small multilobular fat-containing ventral hernia in the lower abdomen. Additional nonacute findings as described. Electronically signed by: Jeff Hodges DO (11/06/2021 3:06 PM) [id number]
== END ==
LOC: CT 12:56
PROVIDERS: ATTEND Obstetrics & Gynecology
DX: K43.9 Ventral hernia without obstruction or gangrene (principal); K76.89 Other specified diseases of liver; R10.13 Epigastric pain
CPT/HCPCS: 74170; Q9966; Q9967